=== PATIENT | female | born 1980 | race Caucasian/White ===

== ENCOUNTER 2018-02-28 18:36 | Emergency (ER) | payer OTHER ==
[~2018-02-28] VITALS: Ht 157.5 cm; Wt 78.9 kg
[2018-02-28 18:45] VITALS: BP 144/75
--- NOTE | 2018-02-28 19:55 | NUR ---
PT PUT IN BED 7. [facility] NOTIFIED
--- NOTE | 2018-02-28 19:55 | NUR ---
PT PRESENTED ER WITH C/O PAIN WHILE URINATING AND VAGINAL DISCHARGE AND LOWER BACK PAIN X 1 WEEK. PT DENIED HAVING BLOOD IN URINE OR VAGINAL BLEEDING. LAST MENSTRAL WAS January. NKA, NO MEDICAL HX. . DENIES N/V/D; SKIN IS PINK/WARM/DRY; AAOX4 WITH EVEN AND STEADY GAIT; PT DENIES ANY FEVER, AT THIS TIME; PATIENT STATES PAIN OF 6/10 AT THIS TIME; VSS; PATIENT POSITIONED FOR COMFORT; HOB ELEVATED; BEDRAILS UP X2; BED DOWN. ER MD MADE AWARE OF PT STATUS.
--- NOTE | 2018-02-28 20:45 | NUR ---
PT SITTING UP IN BED, VITALS STABLE
[2018-02-28 20:47] LABS: APPEARANCE,URINE CLEAR (CLEAR); BILIRUBIN,URINE NEGATIVE (NEGATIVE); BLOOD, URINE NEGATIVE (NEGATIVE); COLOR,URINE YELLOW (YELLOW); LEUKOCYTE ESTERASE ,URINE 2+ (NEGATIVE); NITRITE, URINE NEGATIVE (NEGATIVE); UGLUCOSE NEGATIVE (NEGATIVE)
[2018-02-28 20:50] LABS: RBC,URINE 0-5 (RARE) /HPF (0-5); YEAST,URINE Few /HPF (None Seen)
[2018-02-28 21:18] VITALS: BP 144/75
--- NOTE | 2018-02-28 21:18 | NUR ---
Patient discharged with v/s stable. Written and verbal after care instructions given and explained. Patient alert, oriented and verbalized understanding of instructions. Ambulatory with steady gait. All questions addressed prior to discharge. ID band removed. Patient advised to follow up with PMD. Rx of DIFLUCAN AND CIPRO WERE given. Patient educated on indication of medication including possible reaction and side effects. Opportunity to ask questions provided and answered.
[2018-03-05 06:22] LABS: CHLAMYDIA TRACHOMATIS AMP DNA Negative (Negative)
== END 2018-02-28 21:18 | disposition home or self-care (01) ==
LOC: MED 18:36
DX: N39.0 Urinary tract infection, site not specified (principal)
CPT/HCPCS: 36415; 81001; 81025; 87086; 87210; 87491; 99284